=== PATIENT | female | born 1990 | race Caucasian/White ===

== ENCOUNTER 2023-08-20 10:12 | Emergency (ER) | payer MEDICAID ==
[~2023-08-20] VITALS: Ht 167.6 cm; Wt 72.6 kg
[2023-08-20 10:26] VITALS: BP 124/76; PULSE 98; RESP 18; TEMP 98.3; O2SAT 98
[2023-08-20 10:56] VITALS: TEMP 98.3
[2023-08-20 11:02] VITALS: O2SAT 98
[2023-08-20 11:50] LABS: BASOPHILS % (AUTO) 0.5 % (0.0-2.0); EOSINOPHILS # (AUTO) 0.1 K/uL (0-0.4); EOSINOPHILS % (AUTO) 1.8 % (0.0-4.0); HEMATOCRIT 41.1 % (36-48); HEMOGLOBIN 14.2 g/dL (12.0-16.0); LYMPHOCYTES # (AUTO) 1.3 K/uL (2.5-16.5); LYMPHOCYTES % (AUTO) 23.8 % (20.5-51.1); MEAN CORPUSCULAR HEMOGLOBIN 33 pg (27-31); MEAN CORPUSCULAR HGB CONC 35 g/dL (33-37); MEAN CORPUSCULAR VOLUME 94.2 fL (80-94); MONOCYTES # (AUTO) 0.4 K/uL (0.8-1.0); MONOCYTES % (AUTO) 6.9 % (1.7-9.3); NEUTROPHILS # (AUTO) 3.7 K/uL (1.8-7.7); PLATELET COUNT (AUTO) 258 K/uL (140-450); RED BLOOD CELL COUNT(AUTO) 4.36 MIL/uL (4.20-5.40); RED CELL DISTRIBUTION WIDTH 13.6 % (11.6-13.7); WHITE BLOOD COUNT (AUTO) 5.5 K/uL (4.8-10.8)
[2023-08-20 12:07] LABS: ALBUMIN 3.7 g/dL (3.4-5.0); ANION GAP 12.4 (8-16); CALCIUM 9.1 mg/dL (8.5-10.1); CARBON DIOXIDE 25.2 mmol/L (21-32); CREATININE 0.7 mg/dL (0.6-1.3); POTASSIUM 3.6 mmol/L (3.5-5.1); TOTAL BILIRUBIN 0.4 mg/dL (0.0-1.0); TOTAL PROTEIN, SERUM 7.4 g/dL (6.4-8.2)
[2023-08-20 13:47] LABS: APPEARANCE,URINE HAZY (CLEAR); BILIRUBIN,URINE NEGATIVE (NEGATIVE); BLOOD, URINE 3+ (NEGATIVE); COLOR,URINE YELLOW (YELLOW); LEUKOCYTE ESTERASE ,URINE TRACE (NEGATIVE); NITRITE, URINE POSITIVE (NEGATIVE); PH,URINE 5.5 (5.0-9.0); PROTEIN,URINE TRACE (NEGATIVE); UGLUCOSE NEGATIVE (NEGATIVE); UROBILINOGEN,URINE 0.2 EU/dL (0.2 - 1)
[2023-08-20 13:57] LABS: BACTERIA,URINE OCCASSIONAL /HPF (None Seen); RBC,URINE 50-80 /HPF (0-5); SQUAMOUS EPITHELIAL CELL,UR 4-10 (MOD) /LPF (0-3 (FEW)); WBC,URINE 0-5 /HPF (0-5)
[2023-08-20] MEDS ORDERED: NITR100C7 PO (14:00)
[2023-08-20 14:12] VITALS: BP 115/68; PULSE 79; RESP 17; O2SAT 98
== END 2023-08-20 14:12 | disposition home or self-care (01) ==
LOC: MED 10:12
DX: O20.0 Threatened abortion (principal); O23.41 Unspecified infection of urinary tract in pregnancy, first trimester; Z3A.01 Less than 8 weeks gestation of pregnancy; Z79.899 Other long term (current) drug therapy
CPT/HCPCS: 36415; 76801; 80053; 81001; 83690; 84702; 85025; 86886; 86900; 86901; 99284; Q0092

== ENCOUNTER 2023-08-22 10:39 | Emergency (ER) | payer MEDICAID ==
[~2023-08-22] VITALS: Ht 165.1 cm; Wt 77.1 kg
[~2023-08-22 10:39] MED LIST: NITR100C7 PO
[2023-08-22 10:59] VITALS: BP 137/72; PULSE 79; RESP 16; TEMP 98.3; O2SAT 97
[2023-08-22] MEDS ORDERED: ACET-2619 PO (13:56)
[2023-08-22 14:03] VITALS: BP 130/72; PULSE 70; RESP 16; TEMP 98.3; O2SAT 99
== END 2023-08-22 14:03 | disposition home or self-care (01) ==
LOC: MED 10:39
DX: O03.9 Complete or unspecified spontaneous abortion without complication (principal); Z79.899 Other long term (current) drug therapy
CPT/HCPCS: 36415; 84702; 99283